=== PATIENT | female | born 1990 | race Caucasian/White ===

== ENCOUNTER 2017-10-23 17:36 | Emergency (ER) | payer OTHER ==
[~2017-10-23] VITALS: Ht 157.5 cm; Wt 61.3 kg
[~2017-10-23 17:36] MED LIST: AFEDITAB CR60 M1 PO; CLONIDINE HYDR0.3 M1 PO; COZAAR100 MG PO; METOPROLOL SUCC50 M2 PO; NEPHRO-VITE1 TAB PO; PANTOPRAZOLE SO40 M1 PO; RENVELA800 M1 PO; SENSIPAR30 M1 PO
[2017-10-23 17:59] VITALS: BP 118/76
== END 2017-10-23 18:52 | disposition home or self-care (01) ==
LOC: ED 17:36
DX: J02.9 Acute pharyngitis, unspecified (principal); I10 Essential (primary) hypertension; Z99.2 Dependence on renal dialysis
CPT/HCPCS: J0561

== ENCOUNTER 2018-08-03 12:34 | Emergency (ER) | payer OTHER ==
[~2018-08-03] VITALS: Ht 152.4 cm; Wt 61.2 kg
[2018-08-03 12:38] VITALS: BP 107/60; Ht 152.4 cm; Wt 61.2 kg
== END 2018-08-03 15:35 | disposition home or self-care (01) ==
LOC: ED 12:34
DX: B34.9 Viral infection, unspecified (principal); I10 Essential (primary) hypertension; Z98.890 Other specified postprocedural states
CPT/HCPCS: Q0092; Q0162